=== PATIENT | male | born 1965 | race Caucasian/White ===

== ENCOUNTER 2022-03-18 21:21 | Inpatient (IN) ==
[2022-03-19 00:18] LABS: Basophils % 0.2 % (0.0-0.8); Eosinophils # 0.3 10*3/uL (0.0-0.87); Eosinophils % 2.4 % (0.00-10.9); Hematocrit 28.5 VOL% (42.0-52.0); Immature Granulocytes % 1.7 %; Immature Granulocytes Absolute 0.23 #; Lymphocytes # 1.1 10*3/uL (1.4-4.0); Mean Corpuscular HGB Conc 31.6 GM/DL (32-36); Mean Corpuscular Volume 97.9 FL (87-102); Mean Platelet Volume 9.8 FL (9.6-12.0); Monocytes # 1.1 10*3/uL (0.11-0.8); Neutrophils % 79.7 % (38.7-73.9); Platelet Count 275 T/CUMM (130-400); Red Blood Count 2.91 MC/CUMM (3.8-5.5); Red Cell Distribution Width 14.3 % (9.3-17.3); White Blood Count 13.9 T/CUMM (4-12)
[2022-03-19 00:39] LABS: Alanine Aminotransferase 16 U/L (16-61); Albumin 2.5 G/DL (3.4-5.0); Alkaline Phosphatase 90 U/L (45-117); Aspartate Amino Transferase 12 U/L (0-37); Bilirubin,Total < 0.39 MG/DL (0.20-1.00); Blood Urea Nitrogen 94 MG/DL (7-18); Calcium 8.8 MG/DL (8.5-10.1); Carbon Dioxide 22 MMOL/L (21-32); Chloride 102 MMOL/L (98-107); Glucose 97 MG/DL (74-106); Osmolality,Calculated 298.1 MOS/KG (273-304); Potassium 4.8 MMOL/L (3.5-5.1); Sodium 135 MMOL/L (136-145)
[2022-03-19] MEDS ORDERED: GLUCAGON 1 MG VIAL IM PRN (03:23)
[2022-03-19] MEDS ORDERED: ALBUTEROL 2.5 MG/3 ML NEB RESP TX PRN (03:23)
[2022-03-19] MEDS ORDERED: ONDANSETRON 4 MG/2 ML VIAL IV PRN (03:23)
[2022-03-19] MEDS ORDERED: ACETAMINOPHEN 325 MG TABLET PO PRN (03:23)
[2022-03-19] MEDS ORDERED: DEXTROSE 10% 250 ML BAG IV PRN (04:03)
[2022-03-19 04:44] LABS: Basophils % 0.2 % (0.0-0.8); Eosinophils # 0.3 10*3/uL (0.0-0.87); Eosinophils % 2.7 % (0.00-10.9); Hematocrit 26.8 VOL% (42.0-52.0); Hemoglobin 8.3 GM/DL (14.0-18.0); Immature Granulocytes % 1.4 %; Immature Granulocytes Absolute 0.17 #; Lymphocytes # 1.6 10*3/uL (1.4-4.0); Lymphocytes % 13.2 % (21.2-54.2); Mean Corpuscular Volume 98.9 FL (87-102); Mean Platelet Volume 9.8 FL (9.6-12.0); Monocytes # 1.2 10*3/uL (0.11-0.8); Monocytes % 9.4 % (1.7-12.7); Neutrophils % 73.1 % (38.7-73.9); Platelet Count 254 T/CUMM (130-400); Red Blood Count 2.71 MC/CUMM (3.8-5.5); Red Cell Distribution Width 14.3 % (9.3-17.3); White Blood Count 12.3 T/CUMM (4-12)
[2022-03-19] MEDS ORDERED: ENOXAPARIN 30 MG/0.3 ML SYRINGE SUBCUT SCH (05:00)
[2022-03-19 05:04] LABS: Alanine Aminotransferase 16 U/L (16-61); Albumin 2.4 G/DL (3.4-5.0); Alkaline Phosphatase 92 U/L (45-117); Aspartate Amino Transferase 13 U/L (0-37); Bilirubin,Total < 0.39 MG/DL (0.20-1.00); Blood Urea Nitrogen 97 MG/DL (7-18); Calcium 8.5 MG/DL (8.5-10.1); Carbon Dioxide 25 MMOL/L (21-32); Chloride 103 MMOL/L (98-107); Glucose 95 MG/DL (74-106); Osmolality,Calculated 299.1 MOS/KG (273-304); Potassium 4.8 MMOL/L (3.5-5.1); Sodium 135 MMOL/L (136-145); Total Protein 6.5 G/DL (6.4-8.2)
[2022-03-19] MEDS ORDERED: ONDANSETRON 4 MG/2 ML VIAL ONE (08:50)
[2022-03-19] MEDS ORDERED: fentaNYL 100 MCG/2 ML VIAL ONE (08:50)
[2022-03-19] MEDS ORDERED: LIDOCAINE 2% 5 ML VIAL ONE (08:50)
[2022-03-19] MEDS ORDERED: ETOMIDATE 40 MG/20 ML VIAL IV ONE (08:50)
[2022-03-19] MEDS ORDERED: propofoL 200 MG/20 ML VIAL IV ONE (08:50)
[2022-03-19] MEDS ORDERED: MIDAZOLAM 2 MG/2 ML VIAL ONE (08:51)
[2022-03-19] MEDS ORDERED: KETAMINE 500 MG/10 ML VIAL ONE (08:51)
[2022-03-19] MEDS ORDERED: HEPARIN 5,000 UNIT/1 ML VIAL ONE (09:29)
[2022-03-19] MEDS ORDERED: TISSUE ADHESIVE 1 EACH APPLICATOR TOP ONE (09:29)
[2022-03-19] MEDS: TORSEMIDE 20 MG TABLET PO SCH (11:37)
[2022-03-19] MEDS: ATORVASTATIN 40 MG TABLET PO SCH (11:37)
[2022-03-19] MEDS: OMEGA 3 ACID ETHYL ESTERS 1 GM CAPSULE PO SCH (11:38)
[2022-03-19] MEDS: atenoloL 25 MG TABLET PO SCH ×2 (11:39→20:20)
[2022-03-19] MEDS: metOLazone 5 MG TABLET PO SCH (11:39)
[2022-03-19] MEDS: GABAPENTIN 100 MG CAPSULE PO SCH ×2 (11:40→20:20)
[2022-03-19] MEDS: PANTOPRAZOLE 40 MG TABLET PO SCH (11:40)
[2022-03-19] MEDS: TAMSULOSIN 0.4 MG CAPSULE PO SCH (11:41)
[2022-03-19] MEDS: buPROPion 100 MG TABLET PO SCH ×2 (11:43→20:20)
[2022-03-19] MEDS: NICOTINE 21 MG/24 HR PATCH TRANSDERM SCH (11:46)
[2022-03-19] MEDS: lisinopriL 5 MG TABLET PO SCH (11:59)
[2022-03-19] MEDS: INSULIN LISPRO 100 UNIT/ML SUBCUT SCH ×4 (11:59→20:22)
[2022-03-19] MEDS: NON-FORMULARY MEDICATION (Umeclidinium-Vilanterol [Anoro Ellipta] 62.5-25 mcg/actuation Bl INH SCH (12:00)
[2022-03-19] MEDS: NON-FORMULARY MEDICATION (Tadalafil 5 mg tablet) PO SCH (12:02)
[2022-03-19] MEDS ORDERED: NALOXONE 0.4 MG/ML VIAL IV PRN (12:45)
[2022-03-19] MEDS: cloNIDine 0.1 MG TABLET PO SCH (20:20)
[2022-03-20 04:46] LABS: Basophils % 0.2 % (0.0-0.8); Eosinophils # 0.5 10*3/uL (0.0-0.87); Hematocrit 25.9 VOL% (42.0-52.0); Immature Granulocytes % 1.3 %; Immature Granulocytes Absolute 0.12 #; Lymphocytes # 1.1 10*3/uL (1.4-4.0); Lymphocytes % 11.9 % (21.2-54.2); Mean Corpuscular HGB Conc 30.9 GM/DL (32-36); Mean Corpuscular Volume 100.4 FL (87-102); Mean Platelet Volume 10.4 FL (9.6-12.0); Monocytes # 0.9 10*3/uL (0.11-0.8); Monocytes % 9.2 % (1.7-12.7); Neutrophils % 72.4 % (38.7-73.9); Platelet Count 248 T/CUMM (130-400); Red Blood Count 2.58 MC/CUMM (3.8-5.5); Red Cell Distribution Width 14.3 % (9.3-17.3); White Blood Count 9.6 T/CUMM (4-12)
[2022-03-20 05:16] LABS: Calcium 8.1 MG/DL (8.5-10.1); Osmolality,Calculated 307.4 MOS/KG (273-304); Potassium 4.8 MMOL/L (3.5-5.1)
[2022-03-20 05:17] LABS: Risk Ratio 2.24; VLDL Cholesterol 29.6 MG/DL
[2022-03-20] MEDS: INSULIN LISPRO 100 UNIT/ML SUBCUT SCH ×2 (08:14→11:20)
[2022-03-20] MEDS ORDERED: ENOXAPARIN 30 MG/0.3 ML SYRINGE SUBCUT SCH (09:00)
[2022-03-20] MEDS: TORSEMIDE 20 MG TABLET PO SCH (09:39)
[2022-03-20] MEDS: atenoloL 25 MG TABLET PO SCH (09:39)
[2022-03-20] MEDS: PANTOPRAZOLE 40 MG TABLET PO SCH (09:40)
[2022-03-20] MEDS: buPROPion 100 MG TABLET PO SCH (09:40)
[2022-03-20] MEDS: metOLazone 5 MG TABLET PO SCH (09:40)
[2022-03-20] MEDS: TAMSULOSIN 0.4 MG CAPSULE PO SCH (09:40)
[2022-03-20] MEDS: lisinopriL 5 MG TABLET PO SCH (09:40)
[2022-03-20] MEDS: cloNIDine 0.1 MG TABLET PO SCH (09:40)
[2022-03-20] MEDS: GABAPENTIN 100 MG CAPSULE PO SCH (09:40)
[2022-03-20] MEDS: OMEGA 3 ACID ETHYL ESTERS 1 GM CAPSULE PO SCH (09:40)
[2022-03-20] MEDS: ATORVASTATIN 40 MG TABLET PO SCH (09:40)
[2022-03-20] MEDS: NICOTINE 21 MG/24 HR PATCH TRANSDERM SCH (09:41)
[2022-03-20] MEDS: NON-FORMULARY MEDICATION (Tadalafil 5 mg tablet) PO SCH (09:43)
[2022-03-20] MEDS: NON-FORMULARY MEDICATION (Umeclidinium-Vilanterol [Anoro Ellipta] 62.5-25 mcg/actuation Bl INH SCH (09:43)
[2022-03-20 12:02] VITALS: BP 141/98
== END 2022-03-20 12:35 | disposition home or self-care (01) | DRG 314 ==
LOC: N.ED 21:21 → N.TELEN 03-19 03:24
PROVIDERS: ADMIT Internal Medicine; ATTEND Internal Medicine